=== PATIENT | male | born 1970 ===

== ENCOUNTER → 2019-06-22 | Outpatient (CLI) | payer OTHER | LOC: MHCPAIN 10:50 | DX: G89.29 Other chronic pain (principal); M54.12 Radiculopathy, cervical region; M47.812 Spondylosis without myelopathy or radiculopathy, cervical region | CPT/HCPCS: G0463 ==

== ENCOUNTER → 2019-07-07 | Outpatient (CLI) | payer OTHER | LOC: MHCPAIN 10:16 | DX: M50.13 Cervical disc disorder with radiculopathy, cervicothoracic region (principal) | CPT/HCPCS: J1100; Q9967 ==

== ENCOUNTER → 2019-07-19 | Outpatient (CLI) | payer OTHER | LOC: MHCPAIN 10:34 | DX: M47.812 Spondylosis without myelopathy or radiculopathy, cervical region (principal); R51 Headache | CPT/HCPCS: G0463 ==

== ENCOUNTER → 2019-08-04 | Outpatient (CLI) | payer OTHER | LOC: MHCPAIN 10:22 | DX: M54.2 Cervicalgia (principal) ==

== ENCOUNTER → 2019-08-10 | Outpatient (CLI) | payer OTHER | LOC: MHCPAIN 10:02 | DX: G89.29 Other chronic pain (principal); M54.12 Radiculopathy, cervical region | CPT/HCPCS: G0463 ==